=== PATIENT | male | born 1980 | race Caucasian/White ===

== ENCOUNTER 2018-12-31 08:26 | Emergency (ER) | payer MEDICAID ==
[~2018-12-31] VITALS: Ht 177.8 cm; Wt 73.1 kg
[~2018-12-31 08:26] MED LIST: NO HOME MEDS
[2018-12-31 08:45] VITALS: BP 128/86
[2018-12-31] MEDS ORDERED: CLIN150C2 PO (08:49)
[2018-12-31] MEDS ORDERED: NAPR-56 PO (08:49)
--- NOTE | 2018-12-31 09:05 | NUR ---
Patient seen and assessed by provider
== END 2018-12-31 09:07 | disposition home or self-care (01) ==
LOC: ER 08:27
DX: K05.6 Periodontal disease, unspecified (principal); K08.409 Partial loss of teeth, unspecified cause, unspecified class; F15.90 Other stimulant use, unspecified, uncomplicated; Z88.0 Allergy status to penicillin; Z79.899 Other long term (current) drug therapy; Z86.14 Personal history of Methicillin resistant Staphylococcus aureus infection; Z60.2 Problems related to living alone; Z56.0 Unemployment, unspecified
CPT/HCPCS: 99283

== ENCOUNTER 2019-01-21 07:24 | Emergency (ER) | payer MEDICAID ==
[~2019-01-21] VITALS: Ht 180.3 cm; Wt 72.7 kg
[~2019-01-21 07:24] MED LIST changes: +NAPR-56 PO
[2019-01-21 07:33] VITALS: BP 148/90
[2019-01-21] MEDS ORDERED: CLIN150C8 PO (07:56)
== END 2019-01-21 08:09 | disposition home or self-care (01) ==
LOC: ER 07:25
DX: K08.89 Other specified disorders of teeth and supporting structures (principal); F15.90 Other stimulant use, unspecified, uncomplicated; Z88.0 Allergy status to penicillin
CPT/HCPCS: 99283

== ENCOUNTER 2020-04-10 22:53 | Emergency (ER) | payer MEDICAID ==
[~2020-04-10] VITALS: Ht 180.3 cm; Wt 75.0 kg
[~2020-04-10 22:53] MED LIST changes: +CLIN150C8 PO; -NAPR-56 PO
[2020-04-10 23:00] VITALS: BP 130/92
[2020-04-10] MEDS ORDERED: IBUP-1984 PO (23:14)
[2020-04-10] MEDS ORDERED: CLIN300C70 PO (23:14)
== END 2020-04-10 23:31 | disposition home or self-care (01) ==
LOC: ER 22:53
DX: K04.7 Periapical abscess without sinus (principal); F15.90 Other stimulant use, unspecified, uncomplicated; Z72.89 Other problems related to lifestyle; Z60.2 Problems related to living alone; Z88.0 Allergy status to penicillin; Z79.2 Long term (current) use of antibiotics; Z79.899 Other long term (current) drug therapy
CPT/HCPCS: 99283

== ENCOUNTER → 2021-04-11 | Emergency (ER) | payer MEDICAID ==
[~2021-04-11] VITALS: Ht 180.3 cm; Wt 74.1 kg
[~2021-04-11] MED LIST changes: +HYDR-3965 PO; +IBUP-1984 PO; +IBUP-1985 PO
[2021-04-11 20:15] VITALS: BP 125/82
== END | disposition home or self-care (01) ==
LOC: ER 20:06
DX: R22.0 Localized swelling, mass and lump, head (principal); F15.90 Other stimulant use, unspecified, uncomplicated; Z72.89 Other problems related to lifestyle; Z86.14 Personal history of Methicillin resistant Staphylococcus aureus infection; Z88.0 Allergy status to penicillin; Z79.2 Long term (current) use of antibiotics
CPT/HCPCS: 99281

== ENCOUNTER 2021-04-15 01:11 | Emergency (ER) | payer MEDICAID ==
[~2021-04-15] VITALS: Ht 180.3 cm; Wt 75.0 kg
[~2021-04-15 01:11] MED LIST changes: -HYDR-3965 PO; -IBUP-1984 PO; -IBUP-1985 PO
[2021-04-15 01:20] VITALS: BP 142/95
[2021-04-15] MEDS ORDERED: IBUP-1985 PO (01:53)
[2021-04-15] MEDS ORDERED: IBUP-1984 PO (02:04)
[2021-04-15] MEDS ORDERED: HYDR-3965 PO (02:04)
[2021-04-15] MEDS ORDERED: naproxen 500mg tablet PO ONE (02:10)
[2021-04-15] MEDS ORDERED: diphenhydrAMINE 25mg capsule PO ONE (02:10)
[2021-04-15] MEDS ORDERED: HYDROcodone/acetaminophen 10/325mg tab PO ONE (02:10)
== END 2021-04-15 02:20 | disposition home or self-care (01) ==
LOC: ER 01:12
DX: K08.89 Other specified disorders of teeth and supporting structures (principal); R51.9 Headache, unspecified; F15.90 Other stimulant use, unspecified, uncomplicated; Z60.2 Problems related to living alone; Z86.14 Personal history of Methicillin resistant Staphylococcus aureus infection; Z88.0 Allergy status to penicillin; Z79.899 Other long term (current) drug therapy
CPT/HCPCS: 99284; Q0163